=== PATIENT | female | born 1930 | race Caucasian/White ===

== ENCOUNTER 2018-07-25 22:47 | Emergency (ER) | payer MEDICARE ==
[2018-07-26] MEDS: GI COCKTAIL 50ML BTL(HYOSCYAMINE/MAALOX/LIDOCAINE VISCOUS)(1:3:1) PO (00:28)
[2018-07-26] MEDS: PANTOPRAZOLE 40MG INJ (PROTONIX) (C9113) IV (00:28)
[2018-07-26] MEDS: MORPHINE 2 MG/ML 1ML SYRINGE (J2270) IV (00:28)
[2018-07-26 01:37] LABS: BASO # 0.1 10^3/uL (0.0-0.2); BASO % 0.6 % (0.0-1.0); EOS # 0.4 10^3/uL (0.0-0.50); EOS % 5.5 % (0.0-3.0); HEMATOCRIT 41.1 % (36.0-47.0); HEMOGLOBIN 13.9 g/dl (12.0-15.5); IMMATURE GRANULOCYTE % 0.6 % (0-3.0); LYMPH % 25.8 % (24.0-44.0); MEAN CORPUSCULAR HEMOGLOBIN 35.2 pg (27.0-33.0); MEAN CORPUSCULAR HGB CONC 33.8 g/dl (32.0-36.5); MEAN CORPUSCULAR VOLUME 104.1 fl (80.0-96.0); MONO # 0.5 10^3/uL (0.0-0.8); MONO % 6.4 % (0.0-5.0); NEUTROPHILS # 4.8 10^3/uL (1.8-7.7); NEUTROPHILS % 61.1 % (36.0-66.0); PLATELET COUNT, AUTOMATED 238 10^3/uL (150-450); RED BLOOD COUNT 3.95 10^6/uL (4.00-5.40); RED CELL DISTRIBUTION WIDTH 12.8 % (11.5-14.5); WHITE BLOOD COUNT 7.8 10^3/uL (4.0-10.0)
[2018-07-26 01:49] LABS: INR 0.87
[2018-07-26 01:50] LABS: PARTIAL THROMBOPLASTIN TIME 27.7 SECONDS (25.4-37.6)
[2018-07-26 01:58] LABS: ALBUMIN 3.6 GM/DL (3.2-5.2); ALKALINE PHOSPHATASE 75 U/L (45-117); ALT/SGPT 18 U/L (12-78); ANION GAP 11 MEQ/L (8-16); AST/SGOT 15 U/L (7-37); BILIRUBIN,DIRECT 0.1 MG/DL (0.0-0.2); BILIRUBIN,TOTAL 0.4 MG/DL (0.2-1.0); BLOOD UREA NITROGEN 17 MG/DL (7-18); CALCIUM LEVEL 9.1 MG/DL (8.8-10.2); CARBON DIOXIDE LEVEL 26 MEQ/L (21-32); CHLORIDE LEVEL 104 MEQ/L (98-107); CK-MB VALUE MASS < 1.0 NG/ML (<3.6); CPK CREATINE PHOSPHOKINASE 61 U/L (26-192); GLOMERULAR FILTRATION RATE 55.8 (>32); GLUCOSE, FASTING 87 MG/DL (70-100); LIPASE 181 U/L (73-393); MB/CK RELATIVE INDEX 1.63 (< OR =4); POTASSIUM SERUM 3.7 MEQ/L (3.5-5.1); SODIUM LEVEL 141 MEQ/L (136-145); TOTAL PROTEIN 7.6 GM/DL (6.4-8.2); TROPONIN I < 0.02 NG/ML (< 0.10)
[2018-07-26] MEDS ORDERED: ISOVUE-370 76% 100ML VIAL (Q9967) As Ordered (02:16)
[2018-07-26] MEDS ORDERED: NEOSPORIN OINT 0.9 GM PKT (FLOOR STOCK) As Ordered (02:27)
== END 2018-07-26 04:17 | disposition home or self-care (01) ==
LOC: M ED 22:47
DX: K80.20 Calculus of gallbladder without cholecystitis without obstruction (principal); R00.2 Palpitations; Z79.899 Other long term (current) drug therapy